=== PATIENT | female | born 1995 | race African-American/Black ===

== ENCOUNTER → 2018-11-23 19:00 | Observation (INO) ==
[2018-11-23 16:49] LABS: Amphetamine Screen,Urine Negative ng/mL (Cutoff=1000); Barbiturate Screen,Urine Negative ng/mL (Cutoff=200); Benzodiazepines Screen,Urine Negative ng/mL (Cutoff=200); Cannabinoid Screen,Urine Negative ng/mL (Cutoff = 50); Cocaine Screen,Urine Negative ng/mL (Cutoff= 300); Opiate Screen,Urine Negative ng/mL (Cutoff=300); Phencyclidine Screen,Urine Negative ng/mL (Cutoff=25)
[2018-11-23 18:02] LABS: BUN/Creatinine Ratio 12 (6-26); Blood Urea Nitrogen 6 mg/dL (6-20); Calcium 9.2 mg/dL (8.6-10.3); Carbon Dioxide 25 mEq/L (23-29); Chloride 105 mEq/L (98-107); Glucose 97 mg/dL (70-105); Osmolality,Calculated 282 (280-300); Potassium 3.9 mEq/L (3.5-5.1); Sodium 137 mEq/L (136-145); eGFR For African Americans > 60 (> 60); eGFR For Non-African Americans > 60 (> 60)
--- NOTE | 2018-11-23 18:48 | Discharge Summary ---
Date of Encounter: 11/23/18 Time of Encounter: 18:47 - Discharge Diagnosis (1) 34 weeks gestation of Priority: Primary Status: Acute Comments: Follow up with Dr. Kaur as scheduled PTL precautions discussed Discharge home (2) Fall Priority: Secondary Status: Acute Comments: monitoring x 4 hours post fall FHR Category I tracing Qualifiers: Encounter type: initial encounter Qualified Code(s): W19.XXXA - Unspecified fall, initial encounter (3) Dizziness Priority: Secondary Status: Acute Comments: ECG showed (4) NST (non-stress test) reactive Priority: Secondary Status: Acute Comments: FHR Category I - Discharge Medications Prescriptions: No Action Ondansetron ODT [Zofran ODT] 4 mg PO Q6HR PRN #20 tab.rapdis PRN Reason: Nausea Vits96/Iron Fum/Folic [ Tablet] 1 each PO DAILY Home Medications: Ondansetron ODT [Zofran ODT] 4 mg PO Q6HR PRN #20 tab.rapdis 08/06/16 [Rx] Vits96/Iron Fum/Folic [ Tablet] 1 each PO DAILY 09/21/18 [History] Allergies/Adverse Reactions: Allergy/AdvReac Type Severity Reaction Status Date / Time No Known Allergies Allergy Verified 09/21/18 02:36 Data Procedures and tests throughout hospitalization: Laboratory Tests 11/23/18 11/23/18 16:24 17:27 Sodium 137 Potassium 3.9 Chloride 105 Carbon Dioxide 25 BUN 6 Creatinine 0.51 L Est GFR ( Amer) > 60 Est GFR (Non-Af Amer) > 60 BUN/Creatinine Ratio 12 Glucose 97 Calculated Osmolality 282 Calcium 9.2 Urine Opiates Screen Negative Ur Barbiturates Screen Negative Ur Phencyclidine Scrn Negative Ur Amphetamines Screen Negative U Benzodiazepines Scrn Negative Urine Cocaine Screen Negative U Marijuana (THC) Screen Negative Ur Drug Screen Interp See Below Labs on day of discharge: Labs from last 24 hours 11/23/18 11/23/18 17:27 16:24 Sodium 137 Potassium 3.9 Chloride 105 Carbon Dioxide 25 BUN 6 Creatinine 0.51 L Est GFR ( Amer) > 60 Est GFR (Non-Af Amer) > 60 BUN/Creatinine Ratio 12 Glucose 97 Calculated Osmolality 282 Calcium 9.2 Urine Opiates Screen Negative Ur Barbiturates Screen Negative Ur Phencyclidine Scrn Negative Ur Amphetamines Screen Negative U Benzodiazepines Scrn Negative Urine Cocaine Screen Negative U Marijuana (THC) Screen Negative Ur Drug Screen Interp See Below Date of admission: 11/23/18 15:51 Primary care physician: PCP FAISAL Discharging clinician: Yasmin Kramer Anticipated date of discharge: 11/23/18 - Patient Status Disposition: Home, Self-Care Condition: Good Functional capacity at discharge: independent ambulation Overall status at discharge: patient is progressing back to baseline - Discharge Instructions Follow Up With: NONE,PCP [Primary Care Provider] - Ricardo Kaur MD [Partnered Physician] - - Diet and Activity Activity: increase activity as tolerated Diet: regular diet 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 She reports she was walking up the stairs and fell down on her left side. She was monitored for 4 hours post fall. Electrolytes were examined and found to be normal. heart tracing was category 1. Patient discharged home with instructions to follow-up. Time Attestation: Total time spent providing and/or coordinating discharge services: Time Spent: Less than 30 minutes Exam - Constitutional General appearance IM: A&O X 3, pleasant, no acute distress, obese, answers questions appropriately - Respiratory Respiratory exam: Present: CTAB - Cardiovascular Cardiovascular exam IM: Present: RRR, +S1, +S2 - GI/Abdominal GI/Abdominal exam IM: normal bowel sounds, no peritoneal signs - Rectal Rectal exam: deferred - Uterine Tone: Firm - Extremities Exam Extremities exam IM: Present: full ROM, normal capillary refill, normal inspection, radial pulses palpable and symmetrical - Neurological Exam Neurological exam: alert, CN II-XII intact, normal gait, oriented X3, reflexes normal, no focal deficits, strengths equal and symetr throughout - VTE Reasons for not Prescribing Prophylaxis: Treatment not Indicated - Low risk for VTE
--- NOTE | 2018-11-24 12:13 | Electrocardiograph Report ---
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
== END | disposition home or self-care (01) ==
LOC: 1NENULAB
PROVIDERS: ADMIT Advanced Practice Midwife; ATTEND Advanced Practice Midwife

== ENCOUNTER 2018-12-22 06:00 | Inpatient (IN) ==
[2018-12-22] MEDS ORDERED: *HR* Nalbuphine 10 MG/ML AMPUL IVP PRN (06:25)
[2018-12-22] MEDS ORDERED: Lidocaine 1% 20 ML MDV INFILT PRN (06:25)
[2018-12-22] MEDS ORDERED: Metoclopramide 10 MG/2 ML VIAL IVP PRN (06:25)
[2018-12-22] MEDS ORDERED: Famotidine 20 MG/2 ML VIAL IVP PRN (06:25)
[2018-12-22] MEDS ORDERED: Ondansetron 4 MG/2 ML VIAL IVP PRN (06:25)
[2018-12-22] MEDS ORDERED: Naloxone 0.4 MG/ML INJ IVP PRN (06:25)
[2018-12-22] MEDS ORDERED: Oxytocin 20 units/ LR 1000 mL 20 UNIT/1,000 ML BAG IVC SCH ×2 (06:30→20:56)
[2018-12-22] MEDS ORDERED: Ringers Solution, Lactated 1,000 ML IVC SCH (06:30)
[2018-12-22] MEDS ORDERED: Penicillin G Potassium 5,000,000 UNIT in 0.9 % Sodium Chloride Mini Bag 100 ML IVPB ONE (06:47)
--- NOTE | 2018-12-22 07:18 | OB/GYN History & Physical ---
Date of Encounter: 12/22/18 Time of Encounter: 07:15 Assessment and Plan (1) 39 weeks gestation of Current visit: Yes Status: Acute History of Present Illness Chief complaint: induction HPI: Ms. Goyal is a 23 year old female presents today for induction of labor at 39 weeks. Vaginal examination she is 2 cm 70% effaced -2 station vertex. Patient ramon irregularly on presentation. She has a history of delivering twins vaginally. This morning she is doing well without complaints. She has no drug allergies. She is currently on vitamins. She has no chronic medical conditions. Surgical history is negative. She has a history of abnormal Pap smears, STDs or pelvic infections. Socially she denies tobacco, alcohol, illicit drug use. Family history is significant for anal and thyroid cancer. Past Med Surg Social Fam HX - Past Medical History Medical history: no medical history Psychiatric history: no psych history - Past Surgical History Surgical History: no surgical history - Social History Smoking Status: Never smoker Smokeless Tobacco Status: No Alcohol use: none Drug use: none - Family History Mother Living Status: Still Living Hx Family Cancer: Yes (thyroid) Hx Family Neurologic Disorders: No Father Living Status: Still Living Hx Family Cardiac Disorders: Yes (hypertension) Hx Family Neurologic Disorders: No Obstetrical History - Pregnancies : 2 Para: 2 Livin Medications and Allergies Ondansetron ODT [Zofran ODT] 4 mg PO Q6HR PRN #20 tab.rapdis 08/06/16 [Rx] Vits96/Iron Fum/Folic [ Tablet] 1 each PO DAILY 09/21/18 [History] Allergy/AdvReac Type Severity Reaction Status Date / Time No Known Allergies Allergy Verified 12/22/18 06:16 Review of System OB All systems PM: reviewed and no additional remarkable complaints except as stated Exam - Constitutional Constitutional: well developed, well nourished, no acute distress, average body habitus - HEENT HEENT: EOMI, PERRL, Normocephaly - Neck Neck exam: full ROM, normal inspection - Lungs Respiratory exam: CTAB - Cardiovascular Cardiovascular exam: RRR - Abdomen Abdomen: Present: bowel sounds normal, gravid, non tender - Extremities Extremities exam: full ROM, normal inspection - Vagina Vagina: Present: normal moisture - Cervix Dilation: 2 Effacement: 70 Station: -2 - Uterus Uterus exam: Present: normal size Results All other labs normal. - VTE Reasons for not Prescribing Prophylaxis: Treatment not Indicated - Low risk for VTE
[2018-12-22 07:39] LABS: Basophils % 0.4 %; Eosinophils # 0.1 K/mcL (0.0-0.6); Eosinophils % 1.7 %; Hematocrit 30.3 % (35.3-44.9); Hemoglobin 9.5 g/dL (11.5-15.4); Immature Granulocytes % 0.5 % (0-4); Lymphocytes # 2.3 K/mcL (0.6-4.6); Lymphocytes % 27.3 %; Mean Corpuscular HGB Conc 31.4 g/dL (31.6-35.5); Mean Corpuscular Hemoglobin 25.5 pg (28.0-33.3); Mean Corpuscular Volume 81.5 fL (83.0-100.0); Mean Platelet Volume 10.4 fL (9.4-12.4); Monocytes # 0.7 K/mcL (0.0-1.3); Monocytes % 8.4 %; Neutrophils # 5.2 K/mcL (1.6-8.9); Platelet Count 243 K/mcL (140-400); Red Blood Count 3.72 M/mcL (3.82-4.97); Red Cell Distribution Width 14.5 % (11.5-14.5); Segmented Neutrophils % 61.7 %; White Blood Count 8.3 K/mcL (4.3-11.1)
[2018-12-22 07:52] LABS: Amphetamine Screen,Urine Negative ng/mL (Cutoff=1000); Barbiturate Screen,Urine Negative ng/mL (Cutoff=200)
[2018-12-22 07:54] LABS: Benzodiazepines Screen,Urine Negative ng/mL (Cutoff=300); Cannabinoid Screen,Urine Negative ng/mL (Cutoff = 50); Cocaine Screen,Urine Negative ng/mL (Cutoff= 300); Opiate Screen,Urine Negative ng/mL (Cutoff=300); Phencyclidine Screen,Urine Negative ng/mL (Cutoff=25)
[2018-12-22] MEDS ORDERED: Epidural Premix (fent/bupiv) 110 ML EP SCH (08:45)
[2018-12-22] MEDS ORDERED: Epidural Premix (fent/bupiv) 110 ML EP ONE (08:50)
--- NOTE | 2018-12-22 09:39 | Anesthesia Evaluation PreOp ---
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 History: Denies Any Significant HX Other Medical History: Denies Any Significant HX Anesthesia History: No Prior Anesthetic Complications, Past Anesthesia : Yes Test: Positive Alcohol Use: none Drug use: none Medications and Allergies Ondansetron ODT [Zofran ODT] 4 mg PO Q6HR PRN #20 tab.rapdis 08/06/16 [Rx] Vits96/Iron Fum/Folic [ Tablet] 1 each PO DAILY 09/21/18 [History] Allergy/AdvReac Type Severity Reaction Status Date / Time No Known Allergies Allergy Verified 12/22/18 06:16 - Meds/Allergy Pre-op Review Medications Reviewed: Yes Allergies Reviewed: Yes Beta Blockers on Current Med List: No Anesthesia Results - Labs 12/22/18 06:44 Anesthesia Exam Height: 71 Weight: 115 NPO (# of Hours): mn Pain Scale: 8 - HEENT Pupil (Motor): Pupils equal Mallampati: II Teeth: Normal Oral Opening: Greater than 3 - PETROLEUM SUPPLY SPECIALIST LOC: Oriented PETROLEUM SUPPLY SPECIALIST Motor: Normal RUE, Normal LUE, Normal RLE, Normal LLE, Normal Face PETROLEUM SUPPLY SPECIALIST Sensory: Normal: RUE, LUE, RLE, LLE, Face - Cardiac Rhythm: Regular Murmur: None JVD: No Carotid Bruit: No - Pulmonary Breath Sounds: bilateral Clear Respiratory Effort: Symmetrical Anesthesia Assess/Plan ASA Score: 1 Level of consciousness: Cooperative Anesthetic Plan: Epidural Monitoring Plan: Standard Monitors
--- NOTE | 2018-12-22 09:42 | Anesthesia Procedures ---
Date of Encounter: 12/22/18 Time of Encounter: 08:45 Procedures: Anesthesia - Epidural/Spinal Patient ID/Chart reviewed: Yes Patient examined: Yes OB Eval: Gestational age: 39 OB Eval: : 2 OB Eval: Hx Para: 2 OB Eval: Dilated at (cm): 4 OB Eval: Contractions: Non-stressed pattern Consent Obtained: Yes Site Prep: Aseptic Technique, Sterile prep and drape, Povidone-Iodine 1% Local Anesthetic: Lidocaine 1% Amount of Local Anesthetic used: 3 Touhy Needle Gauge: 18 Touhy Needle Depth (cm): 6 Catheter Depth at Skin (cm): 11 Test Dose Result: Negative Loading Dose: 0.25% Marcaine (mls): 12 Loading Dose Administered: Thru Catheter Infusion Rate (mls/hr): [address]: Tegaderm, Tape Interspace Used: L4-L5 Loss of Resistance (FORTUNATO): Yes Blood: No CSF: No Paresthesia: No Procedure: tolerated well Vitals + FHT's: stable throughout see nursing notes
[2018-12-22] MEDS ORDERED: Penicillin G Potassium 2,500,000 UNIT in 0.9 % Sodium Chloride 100 ML IVPB SCH (11:00)
--- NOTE | 2018-12-22 12:29 | Event Note ---
Date of Encounter: 12/22/18 Time of Encounter: 12:29 This patient doing well. Vaginal exam performed. Govea is out. Cervix is 7 cm's 80% effaced and -1 station. Artificial rupture membranes performed with clear fluid being noted. Category 1 tracing. Irregular contractions.
--- NOTE | 2018-12-22 14:47 | Event Note ---
Date of Encounter: 12/22/18 Time of Encounter: 14:45 SVE /-1 Category 1 traacing. Ctxs q2-3 min. Continue induction
--- NOTE | 2018-12-22 17:19 | OB/GYN Procedure Note ---
Delivery - Delivery Date: 12/22/18 Provider: Ricardo Kaur Intrapartum events: none, other(please specify) Delivery induction: oxytocin, womack Delivery augmentation: rupture of membranes, pitocin Delivery monitor: external FHT, external uterine Anesthesia: epidural Quantitated Blood Loss: 300 - Infant (s) A Delivery Date: 12/22/18 Infant Delivery Time: 16:53 Presentation: vertex Position: OA Route of delivery: Gender: Female Viability: Viable Pounds: 8 Ounces: 9 Weight Gram: 3.875 kg at 1 minute: 6 at 5 mins: 8 Shoulder Dystocia: encountered Shoulder Dystocia Maneuvers: Jayesh maneuver, suprapubic pressure, Contreras Screw maneuver Shoulder dystocia time elapsed: 15 sec Specimens collected: cord blood Placenta: spontaneous - Repair Episiotomy: none Laceration Description: None - Complications Delivery complications: none Delivery comments: This patient progressed to complete and pushing. 's head was brought in the perineum with minimal difficulty. We then encountered a shoulder dystocia. At this time we attempted Jayesh maneuver. We then proceeded to suprapubic pressure. The shoulder dystocia was resolved at approximately 15 seconds using the contreras screw maneuver. I was able to rotate the bringing the anterior shoulder down and then deliver the rest of the infant without difficulty. cried immediately. Infant was passed to NICU team in attendance. After a minute the cord was clamped and cut. Cord blood was obtained. The placenta was then delivered spontaneously and intact. There were no cervical, vaginal, periurethral or perineal lacerations noted. Patient delivered a female infant weight is 8 lbs. 9 oz., 3875 g. Apgars were 6 at 1 minute and 8 at 5 minutes. Assessment blood loss is 300 mL - Disposition Mom disposition: stable in LDR disposition: stable in LDR
[2018-12-22] MEDS ORDERED: Acetaminophen 325 MG TABLET PO PRN (20:56)
[2018-12-22] MEDS ORDERED: Measles/Mumps/Rubella Vacc 0.5 ML VIAL SQ PRN (20:56)
[2018-12-22] MEDS: Ibuprofen 600 MG TABLET PO PRN (21:42)
[2018-12-23] MEDS: Ibuprofen 600 MG TABLET PO PRN (04:44)
[2018-12-23 06:16] LABS: Basophils % 0.3 %; Eosinophils # 0.1 K/mcL (0.0-0.6); Eosinophils % 1.2 %; Hematocrit 31.3 % (35.3-44.9); Hemoglobin 9.8 g/dL (11.5-15.4); Immature Granulocytes % 0.5 % (0-4); Lymphocytes # 2.2 K/mcL (0.6-4.6); Mean Corpuscular HGB Conc 31.3 g/dL (31.6-35.5); Mean Corpuscular Hemoglobin 25.9 pg (28.0-33.3); Mean Corpuscular Volume 82.8 fL (83.0-100.0); Mean Platelet Volume 10.1 fL (9.4-12.4); Monocytes # 0.9 K/mcL (0.0-1.3); Monocytes % 8.4 %; Neutrophils # 7.1 K/mcL (1.6-8.9); Platelet Count 212 K/mcL (140-400); Red Blood Count 3.78 M/mcL (3.82-4.97); Red Cell Distribution Width 14.4 % (11.5-14.5); Segmented Neutrophils % 68.6 %; White Blood Count 10.4 K/mcL (4.3-11.1)
[2018-12-23] MEDS ORDERED: Prenatal Vit/FA 1 EACH TABLET PO SCH (09:00)
--- NOTE | 2018-12-23 10:59 | Discharge Summary ---
Date of Encounter: 12/23/18 Time of Encounter: 10:55 - Discharge Diagnosis (1) Vaginal delivery Priority: Primary Status: Acute Comments: Continue routine care discharge home today Follow up with Dr. Kaur in 4-6 weeks (2) Breast feeding status of mother Priority: Secondary Status: Acute Comments: support prn - Discharge Medications Prescriptions: New Breast Pump [BREAST PUMP] 1 each .ROUTE AD #1 each Ferrous Sulfate 325 mg PO DAILY tablet Ibuprofen [Motrin] 600 mg PO Q6HR PRN #60 tablet PRN Reason: Cramping Continued Vits96/Iron Fum/Folic [ Tablet] 1 each PO DAILY Discontinued Ondansetron ODT [Zofran ODT] 4 mg PO Q6HR PRN #20 tab.rapdis PRN Reason: Nausea Home Medications: Vits96/Iron Fum/Folic [ Tablet] 1 each PO DAILY 09/21/18 [History] Breast Pump [BREAST PUMP] 1 each .ROUTE AD #1 each 12/23/18 [Rx] Ferrous Sulfate 325 mg PO DAILY tablet 12/23/18 [Rx] Ibuprofen [Motrin] 600 mg PO Q6HR PRN #60 tablet 12/23/18 [Rx] Allergies/Adverse Reactions: Allergy/AdvReac Type Severity Reaction Status Date / Time No Known Allergies Allergy Verified 12/22/18 06:16 Data Procedures and tests throughout hospitalization: Laboratory Tests 12/22/18 12/22/18 12/23/18 06:44 06:44 05:41 WBC 8.3 10.4 RBC 3.72 L 3.78 L Hgb 9.5 L 9.8 L Hct 30.3 L 31.3 L MCV 81.5 L 82.8 L MCH 25.5 L 25.9 L MCHC 31.4 L 31.3 L RDW 14.5 14.4 Plt Count 243 212 MPV 10.4 10.1 Immature Gran % 0.5 0.5 Seg Neutrophils % 61.7 68.6 Lymphocytes % 27.3 21.0 Monocytes % 8.4 8.4 Eosinophils % 1.7 1.2 Basophils % 0.4 0.3 Neutrophils # 5.2 7.1 Lymphocytes # 2.3 2.2 Monocytes # 0.7 0.9 Eosinophils # 0.1 0.1 Basophils # 0.0 0.0 Urine Opiates Screen Negative Ur Buprenorphine Scrn Negative Ur Barbiturates Screen Negative Ur Phencyclidine Scrn Negative Ur Amphetamines Screen Negative U Benzodiazepines Scrn Negative Urine Cocaine Screen Negative U Marijuana (THC) Screen Negative Ur Drug Screen Interp See Below Labs on day of discharge: Labs from last 24 hours 12/23/18 05:41 WBC 10.4 RBC 3.78 L Hgb 9.8 L Hct 31.3 L MCV 82.8 L MCH 25.9 L MCHC 31.3 L RDW 14.4 Plt Count 212 MPV 10.1 Immature Gran % 0.5 Seg Neutrophils % 68.6 Lymphocytes % 21.0 Monocytes % 8.4 Eosinophils % 1.2 Basophils % 0.3 Neutrophils # 7.1 Lymphocytes # 2.2 Monocytes # 0.9 Eosinophils # 0.1 Basophils # 0.0 Date of admission: 12/22/18 06:09 Consults: 12/22/18 20:56 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 to Animal Husbandry Manager [CONS] Routine Comment: Vaginal delivery, consult needed Discharging clinician: Shell Hargrove Anticipated date of discharge: 12/23/18 - Patient Status Disposition: Home, Self-Care Condition: Good Functional capacity at discharge: independent ambulation - Discharge Instructions Follow Up With: Ricardo Kaur MD [Partnered Physician] - - Diet and Activity Activity: increase activity as tolerated Diet: regular diet Hospital Course Reason for admission: induction of labor Delivery: Episiotomy: none Laceration: 1st degree Other procedures: none complications: none Discharge diagnosis: IUP at term delivered baby: female (breast feeding) Time Attestation: Total time spent providing and/or coordinating discharge services: Time Spent: Less than 30 minutes Exam - Constitutional Vitals: Temp Pulse Resp BP Pulse Ox 97.9 F 81 14 122/72 99 12/23/18 04:40 12/23/18 04:40 12/23/18 04:40 12/23/18 04:40 12/23/18 04:40 General appearance IM: A&O X 3, pleasant, answers questions appropriately - Respiratory Respiratory exam: Present: CTAB - Cardiovascular Cardiovascular exam IM: Present: RRR, +S1, +S2 - GI/Abdominal GI/Abdominal exam IM: normal bowel sounds - Uterine Tone: Firm Uterus Position: At Umbilicus, Midline - Extremities Exam Extremities exam IM: Present: full ROM, normal capillary refill, normal inspection - Neurological Exam Neurological exam: alert, oriented X3, reflexes normal
[2018-12-23 11:33] VITALS: BP 106/63
== END 2018-12-23 21:04 | disposition home or self-care (01) | DRG 560 ==
LOC: 1NENULAB 06:09 → 1NENUOBS 21:13
PROVIDERS: ADMIT Obstetrics & Gynecology; ATTEND Obstetrics & Gynecology